=== PATIENT | female | born 1940 | race Caucasian/White ===

== ENCOUNTER → 2018-04-25 | Outpatient (CLI) | payer OTHER, MEDICAID ==
[~2018-04-25] MED LIST: ASPIRIN; ASPIRIN325 PO; AYGESTIN 5 MG TA5 M1; DIOVAN160 MG PO; FELDENE; FELDENE20 MG PO; FOSAMAX 70 MG T70 MG PO; GEMFIBROZIL; GEMFIBROZIL 60600 M1 PO; GILPIZIDE; GLUCOPHAGE1000 MG; GLUCOPHAGE1000 MG PO; GLUCOSAMINE HC500 M1 PO; GLUCOTROL5 MG PO; HYDROCODON-ACE1 EACH PO; HYDROCODONE; IRON325 PO; MIRALAX17 GM PO; MULTIVITAMINS PO; NORCO 5-325 TA1 EACH PO; OMEPRAZOLE40 MG PO; OYST-CAL-500500 MG PO; OYSTER SHELL C1 EA12; PREMARIN VAGI42.5 G1 VAG; TRAMADOL 50 MG50 MG PO; VITAMINC500 PO; ZANTAC 150MG T150 MG PO; ZOCOR 20 MG TAB20 M1; ZOCOR40 MG PO
== END ==
LOC: M.WC 09:08
DX: E11.622 Type 2 diabetes mellitus with other skin ulcer (principal); I87.313 Chronic venous hypertension (idiopathic) with ulcer of bilateral lower extremity; L89.154 Pressure ulcer of sacral region, stage 4; L98.491 Non-pressure chronic ulcer of skin of other sites limited to breakdown of skin; L89.224 Pressure ulcer of left hip, stage 4; L89.620 Pressure ulcer of left heel, unstageable; L97.421 Non-pressure chronic ulcer of left heel and midfoot limited to breakdown of skin; L89.512 Pressure ulcer of right ankle, stage 2; L97.311 Non-pressure chronic ulcer of right ankle limited to breakdown of skin; E11.65 Type 2 diabetes mellitus with hyperglycemia; E78.00 Pure hypercholesterolemia, unspecified; E78.2 Mixed hyperlipidemia; M81.0 Age-related osteoporosis without current pathological fracture; I10 Essential (primary) hypertension; K21.9 Gastro-esophageal reflux disease without esophagitis; M06.9 Rheumatoid arthritis, unspecified; M15.0 Primary generalized (osteo)arthritis; F03.90 Unspecified dementia, unspecified severity, without behavioral disturbance, psychotic disturbance, mood disturbance, and anxiety; Z87.891 Personal history of nicotine dependence